=== PATIENT | female | born 1940 | race Caucasian/White ===

== ENCOUNTER → 2020-09-16 | Outpatient (CLI) | payer MEDICARE ==
[~2020-09-16] MED LIST: APIX5TAB PO; CEFD300C37 PO; ENOX80SY4 SQ; FURO20TA3 PO; LOSA50TA14 PO; OMEP-110 PO; OMEP20CA20 PO; OMNIPAQUE 350 MG/ML, 75ML BOTTLE ONE; POTA20TA6 PO; RIVA15TA PO; RIVA20TA PO; SIMV20TA19 PO; WARF2TAB99 PO; Warfarin PO-COUM
== END | disposition home or self-care (01) ==
LOC: CFH 10:14
PROVIDERS: ATTEND Internal Medicine Geriatric Medicine
DX: J85.2 Abscess of lung without pneumonia (principal); J98.4 Other disorders of lung; R91.8 Other nonspecific abnormal finding of lung field
CPT/HCPCS: 71260; Q9967